=== PATIENT | female | born 1930 | race Caucasian/White ===

== ENCOUNTER 2017-03-28 17:09 | Emergency (ER) | payer BC ==
[~2017-03-28] VITALS: Ht 160 cm; Wt 64.6 kg
[~2017-03-28 17:09] MED LIST: AMLO-110 PO; ASPCH81X PO; ATOR-22 PO; DTRSR4 PO; LEVO1TAB50 PO; PRLSR20 PO
[2017-03-28 17:10] VITALS: BP 0/0; PULSE 0; O2SAT 0; Ht 160 cm; Wt 64.6 kg
--- NOTE | 2017-03-28 21:54 | EMERGENCY ROOM VISIT NOTE ---
History Report prepared by Kevon: Hortencia Arredondo Under the Supervision of: Dr. Tristan Henry D.O. First contact with patient: 17:00 Chief Complaint: CARDIAC ASSESSMENT Stated Complaint: CARDIAC ARREST History of Present Illness The patient is a 86 year old female who presents to the Emergency Room for a cardiac assessment. Per daughter, the patient had an episode of shaking around occurring at 1630 today. This episode lasted a few seconds and the patient developed a right-sided facial droop and became unresponsive. EMS was called. Per EMS, the patient had agonal breathing when they arrived on scene. Between [id number] EMS was unable to palpate a pulse. The patient continued to have agonal respirations. Daughter was present and is the patient's POA. She reports that the patient is a DNR/DNI. The HPI is limited secondary to cardiac arrest. Patient was transported into the hospital by EMS. Source of History: family, EMS History Limited By: cardiac arrest Onset: 1630 Position: chest Timing: other (episode) Review of Systems ROS is limited secondary to cardiac arrest. Past Medical & Surgical Medical Problems: (1) Anxiety (2) Asthma (3) Diabetes (4) GERD (gastroesophageal reflux disease) (5) Hypertension Family History Diabetes mellitus Heart disease Hypertension Lung disease Social History Smoking Status: Never Smoker Drug Use: none Housing Status: lives with family Occupation Status: retired Current/Historical Medications Unable to Obtain Active Prescriptions or Reported Meds Allergies Coded Allergies: Sulfa Drugs (Verified Allergy, Unknown, 12/17/15) Sulfamethoxazole (Verified Allergy, Unknown, 12/17/15) Trimethoprim (Verified Allergy, Unknown, 12/17/15) Physical Exam Vital Signs Date Time Temp Pulse Resp B/P (MAP) Pulse Ox O2 Delivery O2 Flow Rate FiO2 03/28/17 17:10 0 0 0/0 0 Room Air Physical Exam GENERAL: Pale appearing, unresponsive, ashen joshi EYE EXAM: Pupils fixed and dilated, nonreactive to light. OROPHARYNX: mucous membranes are dry NECK: supple, no carotid pulse LUNGS: Absent breath sounds. HEART: No appreciable cardiac activity. ABDOMEN: abdomen soft, no masses, no rebound or guarding. SKIN: no rashes and no bruising UPPER EXTREMITIES: upper extremities are grossly normal. LOWER EXTREMITIES: No pitting edema. NEURO EXAM: Unresponsive to pain, pupils fixed and dilated. Medical Decision & Procedures ECG Indication: other Rate (beats per minute): 31 Rhythm: other (idioventricular rhythm) Findings: other (wide complex QRS) Change: Patient's electrocardiogram interpreted by me. ED Course ED COURSE: Vital signs were reviewed and showed asystolic. The patients medical record was reviewed The above diagnostic studies were performed and reviewed. ED treatments and interventions as stated above. 1700: I took medical command at this time prior to the patient's arrival in the ED. 1714: The patient was evaluated in room B1. A complete history and physical examination was performed. Time of was called. Medical Decision Differential Diagnosis includes but is not limited to ischemic Stroke, hemorrhagic stroke, bells palsy, mass, neoplasm, migraine headache, seizure, subarachnoid hemorrhage, TIA, and transient global amnesia. Patient is an 86-year-old female who is a DNR/DNI. I received medical command call from EMS and she reportedly had a facial droop and became unresponsive. She had agonal breathing and family noted that she was a DNR/DNI. She was transported via EMS to the ER. Upon presentation there is no respiratory effort. She was pulseless. She had intermittent pulseless cardiac activity on the EKG. Family was updated at bedside that she had passed a last at 5:14 PM as they wanted no extraneous intervention. Medication Reconcilliation Current Medication List: was personally reviewed by me Impression Primary Impression: Cardiac arrest Scribe Attestation The scribe's documentation has been prepared under my direction and personally reviewed by me in its entirety. I confirm that the note above accurately reflects all work, treatment, procedures, and medical decision making performed by me. Departure Information Dispostion Prescriptions Unable to Obtain Active Prescriptions or Reported Meds Referrals Zelalem Baltazar D.O. (PCP) Patient Instructions My [facility]
== END 2017-03-28 18:10 | disposition expired ==
LOC: EDBD 17:09 → C.EDB 17:11
DX: I46.9 Cardiac arrest, cause unspecified (principal); F41.9 Anxiety disorder, unspecified; J45.909 Unspecified asthma, uncomplicated; E11.9 Type 2 diabetes mellitus without complications; I10 Essential (primary) hypertension; K21.9 Gastro-esophageal reflux disease without esophagitis; Z83.3 Family history of diabetes mellitus; Z82.49 Family history of ischemic heart disease and other diseases of the circulatory system